=== PATIENT | female | born 1955 | race Caucasian/White ===

== ENCOUNTER 2016-06-07 13:22 | Emergency (ER) | payer OTHER ==
[2016-06-07 13:53] VITALS: BP 104/64
--- NOTE | 2016-06-07 14:21 | UC ---
Throat Pain/Nasal Robert HPI - HPI Summary HPI Summary: Patien has had left side throat pain for the past 4 days. no fever, cough some ear pain - History of Current Complaint Chief Complaint: UCGeneralIllness Stated Complaint: SORE THROAT Time Seen by Provider: 06/07/16 13:58 Hx Obtained From: Patient ?: No Onset/Duration: Sudden Onset, Lasting Days Severity: Moderate Cough: None Associated Signs & Symptoms: Positive: Dysphagia - Epiglottits Risk Factors Epiglottis Risk Factors: Negative - Allergies/Home Medications Allergies/Adverse Reactions: Allergies Allergy/AdvReac Type Severity Reaction Status Date / Time Ciprofloxacin [From Cipro] Allergy Severe hives Verified 06/07/16 13:53 tongue tingles Hydromorphone [From Dilaudid] Allergy Severe Nausea Verified 06/07/16 13:53 Tetracyclines & Related AdvReac Severe throat Verified 06/07/16 13:53 closes dwain d Allergy Severe odd Uncoded 06/07/16 13:53 fealing itching etc PMH/Surg Hx/FS Hx/Imm Hx Previously Healthy: Yes Endocrine History Of: Denies: Diabetes, Thyroid Disease Cardiovascular History Of: Denies: Cardiac Disorders, Hypertension, Pacemaker/ICD Respiratory History Of: Reports: Asthma Denies: COPD GI/ History Of: Denies: Ulcer, Renal Disease Psychological History Of: Reports: Anxiety Cancer History Of: Denies: Breast Cancer - Surgical History Surgical History: Yes Surgery Procedure, Year, and Place: APPENDECTOMY 1973; HERNIA REPAIR 2007; RIGHT FOOT BUNION SURGERY 2006; laser surgery for glaucoma 2011; ablation to uterus - ENDOMETROSIS; RT rotator cuff surgery 2011 - Family History Known Family History: Negative: Cardiac Disease, Hypertension - Social History Alcohol Use: Occasionally Alcohol Amount: 2-3/week Substance Use Type: None Smoking Status (MU): Former Smoker - Immunization History Most Recent Influenza Vaccination: 2016 Most Recent Tetanus Shot: up to date Most Recent Pneumonia Vaccination: none Review of Systems Constitutional: Negative Skin: Negative Eyes: Negative ENT: Sore Throat, Ear Ache Respiratory: Negative Cardiovascular: Negative Gastrointestinal: Negative Genitourinary: Negative Motor: Negative Neurovascular: Negative Musculoskeletal: Negative Neurological: Negative Psychological: Negative All Other Systems Reviewed And Are Negative: Yes Physical Exam Triage Information Reviewed: Yes Appearance: Well-Appearing, Well-Nourished, Pain Distress Vital Signs: Initial Vital Signs Temp 98.7 F 06/07/16 13:47 Pulse 71 06/07/16 13:47 Resp 16 06/07/16 13:47 BP 104/64 06/07/16 13:47 Pulse Ox 99 06/07/16 13:47 Vital Signs Reviewed: Yes Eye Exam: Normal Eyes: Positive: Conjunctiva Clear ENT: Positive: Pharyngeal erythema, Tonsillar swelling - tonsil stone noted in left tonsil Dental Exam: Normal Neck exam: Normal Neck: Positive: Supple, Nontender, No Lymphadenopathy Respiratory Exam: Normal Respiratory: Positive: Chest non-tender, Lungs clear, Normal breath sounds Cardiovascular Exam: Normal Cardiovascular: Positive: RRR, No Murmur, Pulses Normal Abdominal Exam: Normal Abdomen Description: Positive: Nontender, No Organomegaly, Soft Bowel Sounds: Positive: Present Musculoskeletal Exam: Normal Musculoskeletal: Positive: Strength Intact, ROM Intact, No Edema Neurological Exam: Normal Neurological: Positive: Alert, Muscle Tone Normal Psychological Exam: Normal Skin Exam: Normal Throat Pain/Nasal Course/Dx - Course Course Of Treatment: hx obtained, exam performed, removed tonsilith from left tonsil without difficulty, educated on symptom relief - Differential Dx/Diagnosis Differential Diagnosis/HQI/PQRI: Influenza, Laryngitis, Otitis Media, Peritonsillar Abscess, Pharyngitis, Sinusitis, URI Provider Diagnoses: pharyngitis. tonsilolith Discharge - Discharge Plan Condition: Stable Disposition: HOME Additional Instructions: You had a tonsil stone removed today, Continue with salt water gargles. lymph drainage technique and increae your fluid intake and use heat to help with circulation.
== END 2016-06-07 14:51 | disposition home or self-care (01) ==
LOC: UCEAST 13:22
DX: J03.90 Acute tonsillitis, unspecified (principal); Z88.1 Allergy status to other antibiotic agents; Z88.5 Allergy status to narcotic agent; Z87.891 Personal history of nicotine dependence
CPT/HCPCS: 99211; G0463

== ENCOUNTER 2017-10-21 08:57 | Emergency (ER) | payer BC ==
--- OUTSIDE RECORDS SUMMARY | 2017-10-21 09:24 | XMS REPORT ---
:1955 External Reference #:[id number] Author Organization [facility] Address [address] [place] [address] [place] [address] Phone [phone] Care Team Providers Name Role Phone Patsy Celaya MD Primary Care Physician Unavailable Payers Type Date Identification Numbers Payment Provider Subscriber Commercial Expires: Policy Number: [employer] Humberto Lynn 2017 [id number] Group Number: [id number] [address] PayID: [id number] [place] [address] Workers Compensation Onset: 2011 Policy Number: [id number] [employer] Latasha Lynn Group Number: [id number] [address] PayID: [place] [address] Workers Compensation Onset: 2011 Policy Number: [employer] Latasha Lynn [id number] Group Number: [id number] PayID: [id number] Problems Date Description Provider Status Onset: 03/04/2012 Chronic pain syndrome Salomon Mcgovern M.D. Active Onset: 03/04/2012 Rheumatoid arthritis Salomon Mcgovern M.D. Active Onset: 03/04/2012 Lumbosacral spondylosis without Salomon Mcgovenr M.D. Active myelopathy Onset: 05/01/2012 Partial Tear Of Rotator Cuff Salomon Mcgovern M.D. Active Onset: 01/06/2015 Hypermobility syndrome Salomon Mcgovern M.D. Active Onset: 01/06/2015 Fibromyalgia Salomon Mcgovern M.D. Active Onset: 01/06/2015 Degeneration of cervical Salomon Mcgovern M.D. Active intervertebral disc Onset: 01/18/2015 Late effect of sprain AND/OR strain Sunny Bryant M.D. Active without tendon injury Onset: 06/01/2015 Cervical spondylosis without Mohan Bañuelos M.D. 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 Cigarette Use Former Cigarette Smoker ETOH Use Occasionally consumes alcohol Recreational Drug Use Denies Drug Use Smoking Patient is a former smoker Exercise Type/Frequency Exercises regularly Allergies, Adverse Reactions, Alerts Date Description Reaction Status Severity Comments 10/15/2011 Tetracycline active Throat Swelling 10/15/2011 Cipro active 10/15/2011 Lisseth-D active 06/01/2015 Dilaudid active 07/05/2015 Tramadol severe CYR active Moderate to Severe 07/05/2015 Gabapentin red face active Medications Medication Date Status Form Strength Qnty SIG Indications Ordering Provider Multi Active Tablets 100ta 1 tab po 1x Unknown Vitamin/Minerals /0000 bs perday Full Spectrum Fish Oil Burp-Less Active Capsules 1000mg 60cap po bid Unknown /0000 s Ibuprofen Active Tablets 600mg 90tab tid Unknown / s Singulair Active Tablets 10mg 1 by mouth Unknown / every day Gabapentin Active Capsules 100mg pt uses 1 a Unknown /0000 day can not tolerate higher doses Vitamin D Active Unknown /0000 Probiotic 00 Active Unknown /0000 Iron Active Unknown /0000 Tizanidine HCL 01/29 Hx Capsules 2mg 30cap 1 or 2 cap M48.00 s by mouth as Jason, - needed at M.D. 07/11 night for spasms, muscular pain Voltaren 07/04 Hx Gel 1% 200gm apply 2 Z79.899 grams twice Jason, - daily as M.D. 07/11 needed for pain to the hands Lidoderm 05/18 Hx Patches 5% 30uni apply 1 M54.12 ts patch per Alayna, - day as 07/11 Cymbalta 05/[address] 20mg 60cap 1 po bid 338.4 Salomon /2013 Part s Endo, - M.D. 04/09 Indomethacin 03/04 Hx Capsules 25mg 120ca 1 po tid 721.3 ps and Endo, - increase to M.D. 05/01 2 bid Tramadol HCL 03/04 Hx Tablets 50mg 120ta qid prn 338.4 bs Endo, - M.D. 04/09 Skelaxin 12/03 Hx Tablets 800mg 60tab take 03/26 338.4 s tablet 4 Endo, - times a day M.D. 04/09 when needed Cyclobenzaprine 10/14 Hx Tablets 5mg 60tab 1-2 po hs s Endo, - M.D. 03/04 Flaxseed Oil Hx Capsules 1000mg 1 po qd Unknown /0000 - 07/11 Vitamin D Hx Capsules 1000Unit 30cap po qd Unknown /0000 s - 04/09 Vitamin B Complex Hx Capsules 1 po qd Unknown /0000 - 03/04 Prempro Hx Tablets 0.3-1.5mg 90tab 1 po qd Unknown /0000 s - 01/06 Premarin Hx Cream 0.625mg/G 42.50 1 Unknown /0000 M 0gm application - pv 2 x 07/04 weekly Tylenol PM Hx Tablets 2 tablets Unknown /0000 at bedtime - 04/09 Pataday Hx Solution 0.2% 2.500 instill one Unknown /0000 ml drop into - each eye 05/31 daily Methylprednisolone Hx Tablets 4mg 28tab two po bid Unknown /0000 s x 7 days - only 04/09 Oxycodone/Acetamin Hx Capsules 5-500mg 30cap 1 tablet by Unknown ophen /0000 s mouth every - 4-6 hours 04/09 as needed Advil PM 00/00 Hx Unknown /0000 - 07/11 Claritin 00/00 Hx Unknown /0000 - 05/31 Ventolin HFA Hx Aerosol 108(90Bas 2 puffs by Unknown /0000 e) mouth four - mcg/Act times a day 07/11 as needed Klonopin 00/00 Hx Tablets 0.5mg 1 tablet up Unknown /0000 to 3 times - daily as 07/11 needed Prempro 00 Hx Tablets 0.45-1.5m 1 by mouth Unknown /0000 g every day - 07/11 Medications Administered in Office Medication Date Status Form Strength Qnty SIG Indications Ordering Provider Triamcinolone 07/12/ Injection Zaneb (Kenalog) 2017 MD Alayna Vital Signs Date Vital Result Comment 10/15/2017 Height 61 inches 5'1" Weight 93.00 lb BP Systolic Sitting 102 mmHg BP Diastolic Sitting 60 mmHg Pain Level 5 BMI (Body Mass Index) 17.6 kg/m2 09/19/2017 Height 61 inches 5'1" Heart Rate 80 /min BP Systolic 98 mmHg BP Diastolic 62 mmHg Respiratory Rate 16 /min Body Temperature 98.7 F Pain Level 5 08/15/2017 Height 61 inches 5'1" Weight 93.00 lb Heart Rate 80 /min BP Systolic 80 mmHg BP Diastolic 60 mmHg Body Temperature 99.1 F Pain Level 3 intermittent BMI (Body Mass Index) 17.6 kg/m2 07/12/2017 Height 61 inches 5'1" Weight 93.00 lb Heart Rate 80 /min BP Systolic 106 mmHg BP Diastolic 66 mmHg Pain Level 4 BMI (Body Mass Index) 17.6 kg/m2 03/05/2016 Height 60.5 inches 5'0.50" Weight 96.00 lb Heart Rate 70 /min BP Systolic Sitting 140 mmHg BP Diastolic Sitting 60 mmHg Pain Level 4 BMI (Body Mass Index) 18.4 kg/m2 01/30/2016 Height 60.5 inches 5'0.50" Weight 96.00 lb Heart Rate 68 /min BP Systolic Sitting 90 mmHg BP Diastolic Sitting 60 mmHg Respiratory Rate 14 /min Body Temperature 97.1 F Pain Level 3 BMI (Body Mass Index) 18.4 kg/m2 08/02/2015 Height 60.5 inches 5'0.50" Weight 98.00 lb Heart Rate 68 /min BP Systolic Sitting 120 mmHg BP Diastolic Sitting 80 mmHg Body Temperature 98.9 F Pain Level 4 BMI (Body Mass Index) 18.8 kg/m2 07/05/2015 Height 60.5 inches 5'0.50" Weight 95.00 lb Heart Rate 68 /min BP Systolic Sitting 120 mmHg BP Diastolic Sitting 60 mmHg Pain Level 3 BMI (Body Mass Index) 18.2 kg/m2 06/01/2015 Height 60.5 inches 5'0.50" Weight 94.00 lb Heart Rate 68 /min BP Systolic Sitting 110 mmHg BP Diastolic Sitting 64 mmHg Pain Level 4 neck BMI (Body Mass Index) 18.1 kg/m2 05/18/2015 Height 60.5 inches 5'0.50" Weight 95.00 lb Heart Rate 71 /min BP Systolic 117 mmHg BP Diastolic 80 mmHg BMI (Body Mass Index) 18.2 kg/m2 01/18/2015 Height 61 inches 5'1" Weight 95.00 lb Pain Level 0 BMI (Body Mass Index) 17.9 kg/m2 01/06/2015 Height 61 inches 5'1" Weight 95.00 lb Heart Rate 64 /min BP Systolic Sitting 110 mmHg BP Diastolic Sitting 70 mmHg Respiratory Rate 14 /min Body Temperature 98.8 F tympanic Pain Level 2 BMI (Body Mass Index) 17.9 kg/m2 02/23/2014 Height 61 inches 5'1" Heart Rate 67 /min BP Systolic 112 mmHg BP Diastolic 67 mmHg 12/22/2013 Height 61 inches 5'1" Heart Rate 58 /min BP Systolic 99 mmHg BP Diastolic 67 mmHg 11/10/2013 Height 61 inches 5'1" Heart Rate 66 /min BP Systolic 114 mmHg BP Diastolic 79 mmHg 09/15/2013 Height 61 inches 5'1" Weight 97.00 lb Pain Level 2 at rest BMI (Body Mass Index) 18.3 kg/m2 07/30/2013 Height 61 inches 5'1" Weight 97.00 lb Heart Rate 61 /min BP Systolic 112 mmHg BP Diastolic 77 mmHg BMI (Body Mass Index) 18.3 kg/m2 04/09/2013 Height 60 inches 5'0" Weight 96.00 lb Heart Rate 61 /min BP Systolic 103 mmHg BP Diastolic 65 mmHg BMI (Body Mass Index) 18.7 kg/m2 05/01/2012 Height 60 inches 5'0" Weight 96.00 lb Heart Rate 74 /min BP Systolic Sitting 110 mmHg BP Diastolic Sitting 64 mmHg BMI (Body Mass Index) 18.7 kg/m2 03/04/2012 Height 60 inches 5'0" Weight 97.00 lb Heart Rate 78 /min BP Systolic Sitting 118 mmHg BP Diastolic Sitting 66 mmHg BMI (Body Mass Index) 18.9 kg/m2 12/04/2011 Height 60 inches 5'0" Weight 97.00 lb Heart Rate 77 /min BP Systolic Sitting 106 mmHg BP Diastolic Sitting 68 mmHg BMI (Body Mass Index) 18.9 kg/m2 10/15/2011 Height 60 inches 5'0" Weight 97.00 lb Heart Rate 71 /min BP Systolic Sitting 106 mmHg BP Diastolic Sitting 62 mmHg BMI (Body Mass Index) 18.9 kg/m2 Results Test Date Test Result H/L Range Note Laboratory test finding 07/05/2015 Rheumatoid Factor <15 IU/mL <15 1 Uric Acid 5.0 mg/dL 2.3-6.6 2 Lyme Disease Serology Negative Negative 3 Anti Ssa/Ro <0.2 U 4 Anti SSB LA <0.2 U 5 Hla B27 07/05/2015 Hla B27 Negative 6 Hla B27 Interp See Comment 7 Laboratory test finding 07/05/2015 C Reactive Protein < 1.00 mg/L < 5.00 8 Cyclic Citrullinated Pep Igg <15.6 U 9 Erythrocyte Sed Rate 11 mm/Hr 0-30 10 CBC With Manual Diff 11/29/2011 White Blood Count 6.0 CUMM 4.8-10.8 Red Cell Count 3.71 CUMM Low 4.2-5.4 Hemoglobin 12.8 g/dL 12.0-16.0 Hematocrit 37 % 35-47 Mean Corpuscular Volume 100 um3 High 79-97 Mean Corpuscular Hemoglob 35 pg High 27-31 Mean Corpuscular HGB Cone 35 g/dL 32-36 Redcell Distribution WDTH 13 % 10.5-15 Platelet Count 269 CUMM 150-450 Mean Platelet Volume 8.3 um3 7.4-10.4 Absolute Neutrophil Count 3.5 1.5-7.7 Polysegmented Neutrophil 74 % 38-83 Lymphocyte 23 % Low 25-47 Monocyte 1 % 0-13 Eosinophil 1 % 0-6 Basophil 1 % 0-2 RBC Morphology NORMAL Laboratory test finding 11/29/2011 Rheumatoid Factor < 15 IU/mL <15 11 Cyclic Citrullinated Pep Igg <15.6 U () 12 Laboratory test finding 11/29/2011 Erythrocyte Sed Rate 10 MM/HR 0-30 C Reactive Protein < 0.5 mg/dL Less Than 0.5 Comp Metabolic Panel 10/12/2011 Sodium 140 mmol/L 135-145 Potassium 4.0 mmol/L 3.5-5.0 Chloride 103 mmol/L 101-111 Co2 (Carbon Dioxide) 31.0 mmol/L 22-32 Anion Gap 6.0 mmol/L 2-11 13 Glucose 82 mg/dL 70-100 BUN 15 mg/dL 6-24 Creatinine 0.9 mg/dL 0.50-1.40 One Over Creatinine 1.11 BUN/Creatinine Ratio 16.7 8-20 Calcium 9.7 mg/dL 8.1-9.9 Total Protein 6.6 GM/DL 6.2-8.1 Albumin 4.2 GM/DL 3.6-5.4 Globulin 2.4 GM/DL 2-4 Albumin/Globulin Ratio 1.8 1-3 Bilirubin Total 0.5 mg/dL 0.4-1.5 14 Alkaline Phosphatase 56 U/L 30-110 Alt (SGPT) 20 U/L 14-54 Ast (Sgot) 24 U/L 12-42 eGFR Non- 64.5 > 60 eGFR 83.0 > 60 15 CBC With Manual Diff 10/12/2011 White Blood Count 7.6 CUMM 4.8-10.8 Red Cell Count 3.98 CUMM Low 4.2-5.4 Hemoglobin 13.4 g/dL 12.0-16.0 Hematocrit 40 % 35-47 Mean Corpuscular Volume 100 um3 High 79-97 Mean Corpuscular Hemoglob 34 pg High 27-31 Mean Corpuscular HGB Cone 34 g/dL 32-36 Redcell Distribution WDTH 13 % 10.5-15 Platelet Count 273 CUMM 150-450 Mean Platelet Volume 9.1 um3 7.4-10.4 Absolute Neutrophil Count 4.7 1.5-7.7 Polysegmented Neutrophil 64 % 38-83 Lymphocyte 27 % 25-47 Monocyte 5 % 0-13 Eosinophil 3 % 0-6 Basophil 1 % 0-2 Anisocytosis SLIGHT Laboratory test finding 10/12/2011 Erythrocyte Sed Rate 9 MM/HR 0-30 C Reactive Protein 0.8 mg/dL High Less Than 0.5 CPK (Creatine Kinase) 94 U/L 0-170 Rheumatoid Factor < 15 IU/mL <15 16 Cyclic Citrullinated Pep Igg <15.6 U () 17 Kelin (Antinuclear Antibodies) 10/12/2011 Antinuclear AB NEGATIVE Negative 1 Test Performed by: [address] [address] Noc Analyst: Ankur Smallwood II, M.D., Ph.D. 2 this week please 3 Serologic response to B. burgdorferi infection is not detected, but cannot rule out early infection during which low or undetectable antibody levels to B. burgdorferi may be present. If clinically indicated, a new serum specimen should be submitted in 7-14 days. Test Performed by: [place] [address] Noc Analyst: Ankur Smallwood II, M.D., Ph.D. 4 REFERENCE VALUE <1.0 (Negative) Test Performed by: [place] [address] Noc Analyst: Ankur Smallwood II, M.D., Ph.D. 5 REFERENCE VALUE <1.0 (Negative) Test Performed by: [place] [address] Noc Analyst: Ankur Smallwood II, M.D., Ph.D. 6 REFERENCE VALUE Not Applicable 7 RESULT: HLA-B27 antigen was not detected. ADDITIONAL INFORMATION Method: Flow Cytometry Performing Laboratory CLIA# [id number] Test Performed by: [place] [address] Noc Analyst: Ankur Smallwood II, M.D., Ph.D. 8 Acute inflammation: >10.00 9 REFERENCE VALUE <20.0 (Negative) Test Performed by: [place] [address] Noc Analyst: Ankur Smallwood II, M.D., Ph.D. 10 this week please 11 Test Performed by: [place] [address] Noc Analyst: Sanchez Perales III, M.D. 12 -- REFERENCE VALUE -- <20.0 (Negative) Test Performed by: [place] [address] Noc Analyst: Sanchez Perales III, M.D. 13 Anion gap measurement may be of limited value in the presence of any alkalosis, especially in a combined acid base disorder. . 14 A metabolite of Naproxen, O-desmethylnaproxen, has been shown to interfere with the Jendrhaoik-Lizzy method for measuring total bilirubin. Samples from patients who have taken Naproxen have shown spurious elevation in total bilirubin levels. 15 Because ethnic data is not always readily available, this report includes an eGFR for both -Americans and non- Americans. The National Kidney Disease Education Program (NKDEP) does not endorse the use of the MDRD equation for patients that are not between the ages of 18 and 70, are , have extremes of body size, muscle mass, or nutritional status, or are non- or non-. According to the National Kidney Foundation, irrespective of diagnosis, the stage of the disease is based on the level of kidney function: Stage Description GFR(mL/min/1.73 m(2)) 1 Kidney damage with normal or decreased GFR 90 2 Kidney damage with mild decrease in GFR 60-89 3 Moderate decrease in GFR 30-59 4 Severe decrease in GFR 15-29 5 Kidney failure <15 (or dialysis) 16 Test Performed by: [place] [address] Noc Analyst: Sanchez Perales III, M.D. 17 -- REFERENCE VALUE -- <20.0 (Negative) Test Performed by: [address] [place] [address] Noc Analyst: Sanchez Perales III, M.D. Procedures Date CPT Code Description Status 07/12/2017 56454 Inject/Drain Joint/Bursa Major W/O US Completed 05/14/2012 15625 Arthroscopy Biceps Tenodesis Completed 05/14/2012 36464 Arthroscopy Shoulder,W/Rotator Cuff Repair Completed 05/14/2012 29358 Arthroscopy,Shoulder Decompression Of Subacromial Space Completed W/Acromio 06/28/2004 95934 ECHO/Stress Completed 06/28/2004 73745 Treadmill Interp/Report Only Completed 06/28/2004 17475 Stress Test Supervsn W/Out I/R Completed Encounters Type Date Location Provider CPT E/M Dx Office Visit 09/19/2017 3:00p [facility] [place] [address] M54.12 [facility] S46.011S Office Visit 08/15/2017 3:15p [facility] [place] [address] M54.12 C.M[facility]A. S46.011S Office Visit 07/12/2017 8:30a [facility] [place] [address] S46.011S [facility] M54.12 M25.511 Office Visit 03/05/2016 2:45p [facility] Services Mohan Bañuelos 75685 M47.22 Of Raymond Roberson Office Visit 01/30/2016 3:40p [facility] Services Willian Gomez 42926 M54.5 Of [facility] M54.6 M48.00 M19.041 M19.042 M54.2 Office Visit 08/02/2015 3:20p [facility] Willian Gomez 15283 M19.042 Of [facility] Roberson M19.041 M35.7 Office Visit 07/05/2015 2:40p [facility] Gomez 70947 M06.4 Raymond Roberson Z79.899 M35.7 M35.01 M79.644 M79.645 Office Visit 06/01/2015 2:00p [facility] Services Mohan Bañuelos 07983 M47.22 Of [facility] Office Visit 05/18/2015 1:30p [facility] [place] [address] M75.42 C.[facility]. M54.2 M54.12 Office Visit 01/18/2015 11:45a [facility] Sunny Bryant M.D. 77313 S46.011S C.M.A. Office Visit 01/06/2015 10:00a [facility] Services Salomon Mcgovern, 33207 M79.7 Of [facility] M50.30 M35.7 Office Visit 02/23/2014 3:00p [facility] Sunny Bryant M.D. 76215 840.4 C.M.A. 719.41 Office Visit 12/22/2013 2:45p [facility] Sunny Bryant M.D. 95895 719.41 C.M.A. 719.41 Office Visit 11/10/2013 9:30a [facility] Sunny Bryant M.D. 60785 719.41 C.M.A. Office Visit 10/19/2013 11:41a [facility], Janet Morales, 55103 562.11 Hospitalists M.DAmarilis 038.9 Office Visit 10/18/2013 11:37a [facility], Janet Morales, 55419 038.9 Hospitalists M.DAmarilis 562.11 Office Visit 10/17/2013 11:35a [facility], Janet Morales, 09075 038.9 Hospitalists M.DAmarilis 562.11 Office Visit 10/16/2013 11:35a [facility], 85303 562.11 Assoc, Hospitalists M.DAmarilis 784.0 Office Visit 09/15/2013 2:30p [facility] Sunny Bryant M.D. 13087 726.19 C.M.A. Office Visit 07/30/2013 10:15a [facility] Kandice Nolen 31920 719.41 C.M.A. RPA-C Office Visit 04/09/2013 2:30p [facility] Sunny Bryant M.D. 06315 840.4 C.M.A. Office Visit 01/08/2013 3:00p [facility] Sunny Bryant M.D. 48534 840.4 C.M.A. Office Visit 10/09/2012 8:15a [facility] Sunny Bryant M.D. 70974 840.4 C.M.A. Office Visit 05/01/2012 1:00p Rheumatology Services Salomon Mcgovern 51098 338.4 Of [facility] Da 721.3 726.13 Office Visit 03/04/2012 2:40p [facility]ology Services Salomon Mcgovern M.D. 01591 338.4 Of [facility] 714.0 721.3 Office Visit 02/28/2012 2:00p [facility] Sunny Bryant M.D. 30884 726.13 C.M.A. 726.13 Office Visit 12/04/2011 1:00p [facility]ology Services Salomon Mcgovern M.D. 35261 338.4 Of [facility] 714.0 Office Visit 10/15/2011 1:40p [facility]ology Services Salomon Mcgovern M.D. 54864 338.4 Of [facility] 714.0 Plan of Care Future Appointment(s):12/16/2017 3:30 pm - Petar Crwoell MD at [facility]10/24/2017 3:30 pm - Yanna Catalan MD at [facility]10/15/2017 - Petar Crowell, MDM54.12 Radiculopathy, cervical regionNew Xrays:MRI Cervical Spine WoSP Cerv Comp/Obl, Flex, ExtFollow up:Rv in 2 months after MRI and films are done.M47.892 Other spondylosis, cervical region
--- OUTSIDE RECORDS SUMMARY | 2017-10-21 09:25 | XMS REPORT ---
:1955 External Reference #:[id number] Author Organization [facility] Address [address] [place] [address] Phone [phone] Care Team Providers Name Role Phone Patsy Celaya M.D. Primary Care Physician Unavailable Payers Type Date Identification Numbers Payment Provider Subscriber Commercial Policy Number: [id number] LISANDRO GODDARD [place] PayID: [id number] [address] [address] [place] [address] Problems Date Description Provider Status Onset: Asthma Active Onset: Hiatal hernia Active Onset: Diverticulitis of colon Active Onset: Colitis Active Onset: Anxiety Active Onset: Rheumatoid arthritis Active Note: JOINT PAINT ON AND OFF Onset: Lupus Active Note: BORDERLINE Onset: Arthritis Active Onset: 10/19/2014 Primary open angle glaucoma Willian Laureano M.D. Active Onset: 10/19/2014 Mild / Early Stage Glaucoma Willian Laureano M.D. Active Onset: 04/22/2015 Keratoconjunctivitis sicca, not Willian Laureano M.D. Active specified as Sjogren's Onset: 09/15/2015 Presbyopia Marilu Meehan O.D. Active Onset: 09/16/2015 Inj conjunctiva and corneal abrasion Marilu Meehan O.D. Active w/o fb, left eye, subs Onset: 02/20/2016 Combined form of senile cataract Willian Laureano M.D. Active Onset: 08/13/2016 Bilateral primary open angle glaucoma Willian Laureano M.D. 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 Fish Oil 10/18/ Active Capsules 1000mg 1 by Willian Davidson mouth Arbest, every day M.DAmarilis Refresh Optive 10/18/ Active Solution 0.5-1-0.5 2-3 times Willian De La Rosa 2015 % a day [place], Sensitive M.DAmarilis Pataday 10/18/ Active Solution 0.2% 7.5ml 1 drop Willian Jacobo 2015 both eyes [place]o, daily M.DAmarilis Levocetirizine / Active Tablets 5mg Unknown Dihydrochloride 0000 Ventolin HFA / Active Aerosol 108(90Bas as needed Unknown 0000 e) mcg/Act Multi Vitamin /00/ Active Tablets Unknown Daily 0000 Probiotic / Active Capsules Unknown 0000 Ibuprofen / Active Tablets 400mg Unknown 0000 Prempro / Active Tablets 0.3-1.5mg Unknown 0000 Biotin / Active Capsules Unknown 0000 Vitamin D / Active Capsules Unknown (Cholecalciferol) 0000 Montelukast / Active Tablets 10mg Unknown Sodium 0000 Prednisolone 02/25/ Hx Suspension 1% 15ml 1 drops Willian Hahn 2017 - left eye [place], 02/28/ three M.D. 2017 times a day. taper as directed Olopatadine HCL 10/17/ Hx Solution 0.1% 15ml 1 drop Willian Jacobo 2016 - every day [place], 10/30/ both eyes M.D. 2017 as needed Maxitrol 03/23/ Hx Suspension 3.5-06450 10ml 1 drop Marilu JaramilloAmarilis 2015 - -0.1 left eye [place], 10/30/ three O.D. 2017 times a day Warm Compresses 10/18/ Hx every Willian JAmarilis 2014 - night [place], 10/30/ M.D. 2016 Cold Compresses 10/18/ Hx every Willian Donnell 2014 - morning [place], 10/30/ M.D. 2017 Alvesco / Hx Aerosol 160mcg/Ac Unknown 0000 - t 2015 Vital Signs Date Vital Result Comment 02/25/2017 BP Systolic 103 mmHg BP Diastolic 61 mmHg Heart Rate 68 /min Results Description No Information Procedures Date CPT Code Description Status 04/01/2017 91904 Visual Field Exam Extended Completed 02/25/2017 29561 Trabeculoplasty By Laser Surgery Completed 02/19/2017 22064 Visual Field Exam Extended Completed 02/19/2017 87236 Est Patient Comprehensive Exam Completed 10/31/2016 10592 Est Patient Comprehensive Exam Completed 08/13/2016 21185 Scanning Computerized Ophthalmic Diagnostic Imag Completed Posterior Seg On 08/13/2016 50062 Est Patient Comprehensive Exam Completed 03/22/2016 12781 Est Patient Intermediate Exam Completed 02/20/2016 14930 Est Patient Comprehensive Exam Completed 02/20/2016 509 Nature's Mist Eye [place] Completed 10/24/2015 59224 Est Patient Comprehensive Exam Completed 10/24/2015 70587 Determination Of Refractive State Completed 10/24/2015 04791 Visual Field Exam Extended Completed 04/22/2015 49939 Scanning Computerized Ophthalmic Diagnostic Imag Completed Posterior Seg On 04/22/2015 06621 Gonioscopy Completed 04/22/2015 68278 Est Patient Intermediate Exam Completed 10/19/2014 71218 Visual Field Exam Extended Completed 10/19/2014 15082 Est Patient Comprehensive Exam Completed 06/08/2014 45665 Determination Of Refractive State Completed 04/19/2014 99478 Scanning Computerized Ophthalmic Diagnostic Imag Completed Posterior Seg On 04/19/2014 78898 Est Patient Intermediate Exam Completed 10/02/2013 05340 Est Patient Comprehensive Exam Completed 10/02/2013 29110 Visual Field Exam Extended Completed 10/02/2013 08230 Fundus Photography With Interpretation And Report Completed 04/20/2013 65042 Visual Field Exam Extended Completed 04/06/2013 28217 Ophthalmic Biometry Completed 04/06/2013 61842 Ophthalmic Biometry Completed 03/20/2013 84732 Scanning Computerized Ophthalmic Diagnostic Imag Completed Posterior Seg On 03/20/2013 87858 Est Patient Comprehensive Exam Completed 10/17/2012 17061 Determination Of Refractive State Completed 10/17/2012 88808 Est Patient Intermediate Exam Completed 04/18/2012 23363 Est Patient Comprehensive Exam Completed 04/18/2012 82473 Visual Field Exam Extended Completed 04/18/2012 09177 Scanning Computerized Ophthalmic Diagnostic Imag Completed Posterior Seg On 12/24/2011 41769 Close Lacrimal Punctum, Plug Completed 12/14/2011 38741 Est Patient Intermediate Exam Completed 12/14/2011 88472 Close Lacrimal Punctum, Plug Completed 10/09/2011 84704 Est Patient Intermediate Exam Completed 09/04/2011 63179 Trabeculoplasty By Laser Surgery Completed 08/28/2011 43535 Trabeculoplasty By Laser Surgery Completed 08/27/2011 07022 Est Patient Intermediate Exam Completed 08/01/2011 17672 Est Patient Intermediate Exam Completed 06/29/2011 34646 Est Patient Intermediate Exam Completed 05/28/2011 68223 Est Patient Comprehensive Exam Completed 02/26/2011 80620 Visual Field Exam Extended Completed 02/26/2011 25847 Est Patient Intermediate Exam Completed 01/31/2011 75720 Scanning Computerized Ophthalmic Diagnostic Imag Completed Posterior Seg On 01/31/2011 63317 Gonioscopy Completed 01/31/2011 51479 Est Patient Intermediate Exam Completed 03/24/2010 40075 Scanning Laser W/Interp And Report Completed 03/24/2010 48853 Est Patient Intermediate Exam Completed 09/14/2009 02914 Est Patient Comprehensive Exam Completed 04/18/2009 508 Refresh PM Ointment Completed 09/15/2008 15798 Est Patient Comprehensive Exam Completed 09/15/2008 59874 Scanning Laser W/Interp And Report Completed 05/25/2008 17147 Scanning Laser W/Interp And Report Completed 04/28/2008 90154 Scanning Laser W/Interp And Report Completed 04/28/2008 36653 Est Patient Comprehensive Exam Completed 10/17/2007 11713 Visual Field Exam Extended Completed 10/17/2007 14218 Determination Of Refractive State Completed 10/17/2007 76358 Est Patient Comprehensive Exam Completed 09/05/2007 48937 Est Patient Intermediate Exam Completed 04/18/2007 12742 Est Patient Intermediate Exam Completed 10/16/2006 83754 Est Patient Comprehensive Exam Completed 10/16/2006 07808 Determination Of Refractive State Completed 10/16/2006 16516 Visual Field Exam Extended Completed 10/16/2006 69311 Scanning Laser W/Interp And Report Completed 04/16/2006 73991 Est Patient Comprehensive Exam Completed 10/11/2005 90474 Visual Field Exam Extended Completed 10/11/2005 21730 Est Patient Intermediate Exam Completed 04/13/2005 34369 Determination Of Refractive State Completed 04/13/2005 67662 Est Patient Intermediate Exam Completed 10/10/2004 24998 Scanning Laser W/Interp And Report Completed 10/10/2004 99917 Visual Field Exam Extended Completed 10/10/2004 01936 Est Patient Intermediate Exam Completed 10/03/2004 49142 Rescheduled Appointment Completed 07/03/2004 67102 Recheck Completed 03/31/2004 59821 Fundus Photography With Interpretation And Report Completed 03/31/2004 33602 Determination Of Refractive State Completed 03/31/2004 91843 Est Patient Comprehensive Exam Completed 09/24/2003 03504 Scanning Laser W/Interp And Report Completed 09/24/2003 77159 Scanning Laser W/Interp And Report Completed 09/24/2003 32666 Visual Field Exam Intermediate Completed 09/24/2003 29811 Est Patient Intermediate Exam Completed 09/24/2003 57561 Pachymetry Completed Encounters Type Date Location Provider CPT E/M Dx Office Visit 04/01/2017 Willian Laureano MD, Willian Laureano, 96426 H40.1131 12:45p pc M.D. Office Visit 09/16/2015 Willian Laureano MD, Marilu Meehan, 02599 S05.02xD 10:15a pc O.D. Office Visit 09/15/2015 Willian Laureano MD, Marilu Meehan, 02681 S05.02xA 2:15p pc O.D. Office Visit 04/20/2013 Willian Laureano MD, Yanet Timmons, 42803 366.16 4:00p pc O.D. 365.11 365.73 Office Visit 04/06/2013 10:30a Willian Laureano MD, Willian Laureano, 76845 366.16 pc M.D. 366.16 Office Visit 05/07/2012 3:40p Willian Laureano MD, Yanet Timmons, 62881 370.20 pc O.D. Office Visit 04/07/2012 12:45p Willian Laureano MD, Leah Villa O.DAmarilis 79910 372.30 pc Office Visit 03/28/2012 3:00p Willian Laureano MD, Yanet Timmons, 43945 372.30 pc O.D. Office Visit 01/07/2012 3:10p Willian Laureano MD, Yanet Timmons, 82739 375.15 pc O.D. Office Visit 12/24/2011 12:20p Willian Laureano MD, Yanet Timmons, 60241 375.15 pc O.D. 375.15 Office Visit 07/25/2011 3:10p Willian Laureano MD, Yanet Timmons, 67748 370.20 pc O.D. Office Visit 07/21/2011 11:30a Willian Laureano MD, Leah Villa O.DAmarilis 03881 370.33 pc Office Visit 07/20/2011 3:10p Willian Laureano MD, Yanet Timmons, 75493 365.11 pc O.D. 365.71 Office Visit 07/31/2010 3:00p Willian Laureano MD, Nagi Jimenez.Sharlene 59488 365.04 pc Office Visit 04/24/2010 3:00p Willian Laureano MD, Nagi Jimenez.Sharlene 61999 379.21 pc Office Visit 02/28/2010 2:00p Willian Laureano MD, Ravi Ruvalcaba M.D. 95067 379.24 pc Office Visit 01/26/2010 3:45p Willian Laureano MD, Leah Villa O.Sharlene 02779 365.04 pc Office Visit 12/14/2009 3:00p Willian Laureano MD, Leah Villa O.DAmarilis 79233 375.15 pc Office Visit 10/13/2009 2:00p Willian Laureano MD, Nagi Jimenez.Sharlene 37190 375.15 pc Office Visit 09/27/2009 10:30a Willian Laureano MD, Gaurav Campos 35973 375.15 pc O.D. Office Visit 04/18/2009 2:00p Willian Laureano MD, Gaurav Campos 65808 375.15 pc O.D. Office Visit 05/25/2008 3:10p Willian Laureano MD, Yanet Timmons, 43927 V58.69 pc O.D. 714.0 Office Visit 02/01/2004 1:45p Willian Laureano MD, Willian Laureano, 38099 372.11 pc M.D. Plan of Care 09/30/2017 - Willian Laureano M.D.H40.1131 Primary open-angle glaucoma, bilateral, mild stageComments:Smoking can increase the risk of developing or worsening any eye related disease, as well as affect your overall health. If you are a smoker, we strongly recommend that you quit.If you are not a smoker, we strongly recommend that you do not start. Your glaucoma is stable at this time.Your eye pressure is within an acceptable range, and your testing does not show any further deterioration at this time. Please continue your treatment.Follow up:6 Month Follow Up DFE/IOP Visual Field, 30-2 You can expect to have your eyes dilated at your nextvisit. If Dr. Laureano orders any additional testing, it may require extra time. We recommend that you bring sunglasses, as dilation drops often make you light sensitive until they wear off. We always recommend you bring someone to drive you home if you are uncomfortable driving with your eyes dilated. If you have any questions before your next visit, feel free to call our office at .
[2017-10-21] MEDS ORDERED: NS 0.9% 1000 ML* 1,000 ML IV ONE (09:34)
[2017-10-21] MEDS ORDERED: Ketorolac INJ* 30 MG/ML 1 ML VIAL IV PUSH ONE (09:34)
--- NOTE | 2017-10-21 09:41 | ED ---
Abdominal Pain/Female - HPI Summary HPI Summary: This is shalom Greenwood documenting for attending Dr. Gaurav Bernard MD. This patient is a 62 year old F presenting to [facility] accompanied by a male with a chief complaint of lower abd pain, worse in the LLQ since yesterday. The patient rates the pain 5/10 in severity. Symptoms aggravated by walking, standing up, urinating, and passing gas. Patient reports fever, back pain, and edema of the abd. Patient denies nausea or difficulty eating. Pt was afebrile in triage and VSS, per triage note. This is this pts second visit to the [facility] for this complaint. Pt reports that her back pain started the day before the abd pain began. Pt hasnt had a BM since yesterday morning but doesnt feel constipated. PMHX Diverticulitis. - History of Current Complaint Chief Complaint: EDAbdPain Stated Complaint: ABD PAIN Time Seen by Provider: 10/21/17 09:06 Hx Obtained From: Patient Onset/Duration: Sudden Onset Timing: Days - 2 Severity Initially: Moderate Severity Currently: Moderate Pain Intensity: 5 Pain Scale Used: 0-10 Numeric Location: Diffuse, Discrete At: LLQ - worse here Radiates: Yes Radiates to: Back Character: Sharp Aggravating Factor(s): Movement, Other: - urinating and passing gas Associated Signs and Symptoms: Positive: Fever, Back Pain. Negative: Nausea Allergies/Adverse Reactions: Allergies Allergy/AdvReac Type Severity Reaction Status Date / Time ciprofloxacin Allergy Hives Verified 10/21/17 09:30 fexofenadine [From Lisseth-D] Allergy Itching Verified 10/21/17 09:30 hydromorphone Allergy Nausea Verified 10/21/17 09:30 pseudoephedrine Allergy Itching Verified 10/21/17 09:30 [From Lisseth-D] Tetracyclines Allergy Anaphylatic Verified 10/21/17 09:30 Shock Home Medications: Home Medications [place]-3 Fatty Acids/Fish Oil [[place] 3] 1 cap PO EVERY OTHER DAY 10/21/17 [ History Confirmed 10/21/17] PMH/Surg Hx/FS Hx/Imm Hx Endocrine/Hematology History: Denies: Hx Diabetes, Hx Thyroid Disease Cardiovascular History: Reports: Hx Syncope - overheated brown outs Denies: Hx Hypertension, Hx Pacemaker/ICD Respiratory History: Reports: Hx Asthma, Hx Seasonal Allergies Denies: Hx Chronic Obstructive Pulmonary Disease (COPD), Other Respiratory Problems/Disorders GI History: Reports: Hx Diverticulosis, Hx Hiatal Hernia - REPAIRED, Other GI Disorders - H/O DIVERTICULITIS Denies: Hx Gastroesophageal Reflux Disease, Hx Ulcer History: Reports: Hx Kidney Infection Denies: Hx Renal Disease Musculoskeletal History: Reports: Hx Arthritis, Hx Rheumatoid Arthritis, Hx Back Problems - neck pain, Hx Scoliosis - MINOR Sensory History: Reports: Hx Contacts or Glasses, Hx Glaucoma Denies: Hx Hearing Aid Opthamlomology History: Reports: Hx Contacts or Glasses, Hx Glaucoma Neurological History: Reports: Hx Headaches Denies: Other Neuro Impairments/Disorders Psychiatric History: Reports: Hx Anxiety Denies: Hx Eating Disorder, Hx Panic Disorder, Hx Suicide Attempt, Hx Substance Abuse - Cancer History Hx Chemotherapy: No Hx Radiation Therapy: No - Surgical History Surgery Procedure, Year, and Place: APPENDECTOMY 1973; HERNIA REPAIR 2007; RIGHT FOOT BUNION SURGERY 2006; laser surgery for glaucoma 2011; ablation to uterus - ENDOMETROSIS; RT rotator cuff surgery 2011 Hx Anesthesia Reactions: Yes - difficult to wake up pt afterwards Infectious Disease History: No Infectious Disease History: Denies: Hx Hepatitis, Hx Human Immunodeficiency Virus (HIV), Traveled Outside the [place] in Last 30 Days - Family History Known Family History: Negative: Cardiac Disease, Hypertension - Social History Alcohol Use: Occasionally Alcohol Amount: 2-3/week Substance Use Type: Reports: None Hx Tobacco Use: No Smoking Status (MU): Former Smoker Review of Systems Positive: Fever Negative: Other - difficulty eating Positive: Abdominal Pain - LLQ, lower abd. Negative: Nausea Positive: Edema - abd, Other - back pain All Other Systems Reviewed And Are Negative: Yes Physical Exam - Summary Physical Exam Summary: Appearance: The patient is well-nourished in no acute distress and in no acute pain. Skin: The skin is warm and dry and skin color reflects adequate perfusion. HEENT: The head is normocephalic and atraumatic. The pupils are equal and reactive. The conjunctivae are clear and without drainage. Nares are patent and without drainage. Mouth reveals moist mucous membranes and the throat is without erythema and exudate. The external ears are intact. The ear canals are patent and without drainage. The tympanic membranes are intact. Neck: The neck is supple with full range of motion and non-tender. There are no carotid bruits. There is no neck vein distension. Respiratory: Chest is non-tender. Lungs are clear to auscultation and breath sounds are symmetrical and equal. Cardiovascular: Heart is regular rate and rhythm. There is no murmur or rub auscultated. Pulses are symmetrical and equal. Abdomen: The abdomen is soft. Diffuse tenderness, worse in the LLQ. No rebound. There are normal bowel sounds heard in all four quadrants and there is no organomegaly palpated. Musculoskeletal: There is no back tenderness noted. Extremities are non-tender with full range of motion. There is good capillary refill. There is no calf tenderness elicited. Neurological: Patient is alert and oriented to person, place and time. The patient has symmetrical motor strength in all four extremities. Cranial nerves are grossly intact. Deep tendon reflexes are symmetrical and equal in all four extremities. Psychiatric: The patient has an appropriate affect and does not exhibit any anxiety or depression. Triage Information Reviewed: Yes Vital Signs On Initial Exam: Initial Vitals Temp Pulse Resp BP Pulse Ox 97.8 F 98 16 122/49 99 10/21/17 09:00 10/21/17 09:00 10/21/17 09:00 10/21/17 09:00 10/21/17 09:00 Vital Signs Reviewed: Yes Diagnostics - Vital Signs Vital Signs Temp Pulse Resp BP Pulse Ox 10/21/17 09:28 99.1 F 10/21/17 09:00 97.8 F 98 16 122/49 99 - Laboratory Result Diagrams: 10/21/17 09:40 10/21/17 09:40 Lab Statement: Any lab studies that have been ordered have been reviewed, and results considered in the medical decision making process. - CT Abd/Pelvis CT Interpretation Completed By: Radiologist - THERE IS FOCAL CIRCUMFERENTIAL MUCOSAL THICKENING OF THE SIGMOID COLON WITH PERICOLONIC INFLAMMATORY CHANGE. THERE ARE OCCASIONAL DIVERTICULA IN THIS AREA. WHILE THE DIFFERENTIAL DOES INCLUDE DIVERTICULITIS, COLITIS WELL COLONIC MUCOSAL NEOPLASM ARE ALSO WITHIN THE DIFFERENTIAL. THERE IS NO APPRECIABLE LOCULATED FLUID COLLECTION TO SUGGEST ABSCESS. RECOMMEND CONSIDERATION OF CORRELATION WITH DIRECT VISUALIZATION. ED Physician reviewed this report Abdominal Pain Fem Course/Dx - Course Course Of Treatment: Ms. Lynn presented to the concern that she was getting diverticulitis again she was having very similar symptoms for about 1 day. She was worked up including contrasted CT scan which was equivocal for diverticulitis versus colitis versus mass. Given her history I will treat her for diverticulitis and get her for follow-up if her symptoms continue. She is allergic to Cipro and I will treat her with Augmentin by mouth. - Diagnoses Provider Diagnoses: Diverticulitis Discharge - Sign-Out/Discharge Documenting (check all that apply): Patient Departure - Discharge Plan Condition: Stable Disposition: HOME Prescriptions: Amoxicillin/Clavulanate TAB* [Augmentin TAB 875*] 875 mg PO BID #20 tab HYDROcodone/ACETAMIN 5-325 MG* [[place] 5-325 TAB*] 1 tab PO Q6H PRN #20 tab MDD 4 PRN Reason: Pain Patient Education Materials: Diverticulitis (ED) Referrals: Patsy Celaya MD [Primary Care Provider] - Octavio Franklin MD [Medical Doctor] - 1 Week Additional Instructions: RETURN TO THE EMERGENCY DEPARTMENT FOR CHANGING OR WORSENING SYMPTOMS Please see Dr. Franklin within the next week or two. - Billing Disposition and Condition Condition: STABLE Disposition: Home
[2017-10-21 09:49] LABS: ABS Basophils 0.1 10^3/ul (0-0.2); ABS Eosinophils 0.1 10^3/ul (0-0.6); ABS Monocytes 0.9 10^3/ul (0-0.8); ABS Neutrophils 9.3 10^3/ul (1.5-7.7); ABS Nucleated RBC 0 10^3/ul; Eosinophil % 0.6 % (0-6); Hematocrit 39 % (35-47); Hemoglobin 13.5 g/dl (12.0-16.0); Lymphocyte % 9.2 % (25-47); Mean Corpuscular HGB Conc 35 g/dl (31-36); Mean Corpuscular Hemoglobin 34 pg (27-31); Mean Corpuscular Volume 98 fL (80-97); Mean Platelet Volume 7.6 um3 (7.4-10.4); Nucleated Red Blood Cells % 0; Platelet Count 257 10^3/ul (150-450); Red Blood Count 3.99 10^6/ul (4.00-5.40); Red Cell Distribution Width 13 % (10.5-15); White Blood Count 11.4 10^3/ul (3.5-10.8)
[2017-10-21 10:06] LABS: EGFR Non-African American 63.2 (>60)
[2017-10-21 10:22] LABS: Urine Appearance Clear; Urine Blood 1+ (Negative); Urine Color Yellow; Urine Ketones 2+ (Negative); Urine Protein Negative (Negative); Urine Red Blood Cell 2+(6-10/hpf) (Absent); Urine Specific Gravity 1.017 (1.010-1.030); Urine Urobilinogen Negative (Negative); Urine White Blood Cell Trace(0-5/hpf) (Absent)
[2017-10-21] MEDS ORDERED: Iohexol 300* (CONTRAST) 10 ML SDV IV ONE (11:22)
--- NOTE | 2017-10-21 11:56 | RAD ---
CLINICAL HISTORY: LLQ pain COMPARISON: October 16, 2013 TECHNIQUE: Multiple contiguous axial CT scans were obtained of the abdomen and pelvis after the administration of intravenous contrast. Coronal and sagittal multiplanar reformations are submitted for review. Oral contrast was administered. Delayed images were obtained through the abdomen. FINDINGS: LUNG BASES: The lung bases are clear. LIVER: The liver is normal in shape, size, contour, and attenuation. BILE DUCTS: There is no intrahepatic or extrahepatic biliary dilatation. GALLBLADDER: The gallbladder is incompletely distended but is grossly normal. PANCREAS: The pancreas is normal, without mass or ductal dilatation. SPLEEN: Normal in size and appearance. UPPER GI TRACT: Evaluation of the gastrointestinal tract is limited by incomplete gastric distention. The upper GI tract is unremarkable. SMALL BOWEL AND MESENTERY: The small bowel is normal in contour, course, and caliber. There is no obstruction or dilatation. COLON: There is circumferential focal mucosal thickening of the sigmoid colon. There is mild stranding of the pericolonic fat. There is mild diverticulosis in this region. ADRENALS: Normal bilaterally. KIDNEYS: The kidneys are normal in shape, size, contour, and axis. There is no hydronephrosis or nephrolithiasis. BLADDER: The bladder is smooth in contour. PELVIC ORGANS: The uterus and adnexa are grossly normal for technique. AORTA: The aorta is normal. IVC: Unremarkable LYMPH NODES: There is no lymphadenopathy by size criteria. ABDOMINAL WALL: There is no evidence for abdominal wall hernia. BONES AND SOFT TISSUES: There is mild scoliotic curvature of the spine. Degenerative changes are noted. OTHER: None IMPRESSION: THERE IS FOCAL CIRCUMFERENTIAL MUCOSAL THICKENING OF THE SIGMOID COLON WITH PERICOLONIC INFLAMMATORY CHANGE. THERE ARE OCCASIONAL DIVERTICULA IN THIS AREA. WHILE THE DIFFERENTIAL DOES INCLUDE DIVERTICULITIS, COLITIS WELL COLONIC MUCOSAL NEOPLASM ARE ALSO WITHIN THE DIFFERENTIAL. THERE IS NO APPRECIABLE LOCULATED FLUID COLLECTION TO SUGGEST ABSCESS. RECOMMEND CONSIDERATION OF CORRELATION WITH DIRECT VISUALIZATION.
[2017-10-21 12:28] VITALS: BP 117/75
--- NOTE | 2017-10-23 06:47 | PN ---
Progress Note - Progress Note Date of Service: 10/23/17 Note: urine culture grew enterococcus faecalis >100,000. patient place on augmentin which should be sensitive to. will wait for final culture.
== END 2017-10-21 12:29 | disposition home or self-care (01) ==
LOC: ED 08:57
DX: K57.92 Diverticulitis of intestine, part unspecified, without perforation or abscess without bleeding (principal); Z87.891 Personal history of nicotine dependence; Z87.19 Personal history of other diseases of the digestive system; Z88.3 Allergy status to other anti-infective agents; Z88.8 Allergy status to other drugs, medicaments and biological substances
CPT/HCPCS: 36415; 74177; 80053; 81003; 81015; 83605; 83690; 85025; 86140; 87077; 87086; 87186; 96361; 96374; 99283; J1885; Q9967